=== PATIENT | female | born 1945 | race Caucasian/White ===

== ENCOUNTER 2018-11-04 16:16 | Inpatient (IN) ==
[2018-11-04] MEDS ORDERED: ZOFRAN IV PRN (17:06)
[2018-11-04] MEDS: LOVENOX SUBQ SCH (19:11)
[2018-11-04] MEDS: TYLENOL PO PRN (19:11)
[2018-11-04 19:41] LABS: BILIRUBIN URINE NEGATIVE (NEGATIVE); BLOOD URINE NEGATIVE (NEGATIVE); CLARITY CLEAR (CLEAR); COLOR YELLOW; GLUCOSE URINE NEGATIVE (NEGATIVE); KETONE URINE TRACE mg/dL (NEGATIVE); LEUKOCYTES URINE NEGATIVE (NEGATIVE); NITRITE URINE NEGATIVE (NEGATIVE); PROTEIN URINE NEGATIVE (NEGATIVE); URINE BACTERIA 1+ /HFP; URINE CAST NONE SEEN /LPF; URINE CRYSTAL NONE SEEN /HPF; URINE EPITHELIAL CELLS <10 /HPF (<10); URINE SOURCE CLEAN CATCH; URINE WBC <10 /HPF (<10); URINE YEAST NONE SEEN /HPF; UROBILINOGEN URINE NORMAL
--- NOTE | 2018-11-04 20:07 | HISTORY AND PHYSICAL ---
PRIMARY CARE PHYSICIAN: Dr. Anel Alvarado. CHIEF COMPLAINT: Of leg pain that began Mark night and progressively worsened up into her groin and pain with walking. HISTORY OF PRESENTING ILLNESS: This is a 73-year-old female who presents to [facility] ER as a direct admit after the patient was seen at the primary care physician's office with pain to her right leg that began Saturday night in the front lower part of her right leg and then went up into her thigh and then radiated up into her groin worse with walking so she was sent to [facility] for an outpatient venous ultrasound, was found to have a peroneal and greater saphenous DVT so she is being admitted for further evaluation and treatment. PAST MEDICAL HISTORY: Hypertension, hyperlipidemia, GERD, diabetes type 2. PAST SURGICAL HISTORY: Of cholecystectomy and . FAMILY HISTORY: Reviewed and noncontributory. SOCIAL HISTORY: She currently lives alone. Denies any tobacco, alcohol or illicit drug use. ALLERGIES: To cephalexin. HOME MEDICATIONS: We need to obtain a current list, reconcile, review and restart as appropriate. We will place an order for nursing to update and confirm home medications. LABORATORY DATA: We are going to obtain a CBC, CMP, TSH, will do a hypercoagulable workup as well. REVIEW OF SYSTEMS: She denied any fever, chills, blurred vision, dizziness, chest pain, coughing, or shortness of breath, she denied any abdominal pain, constipation, diarrhea, burning or hurting with urination. She was positive for pain to her right leg that was worse with ambulation that radiated up into her groin. PHYSICAL EXAMINATION: On arrival she had a temperature of 97.8 degrees, pulse 81, respirations 18, blood pressure 141/63, saturating 98% on room air. GENERAL: This is a 73-year-old female who is sitting up in the bed and answers questions appropriately. HEENT: Normocephalic, atraumatic. Normal ENT inspection. Oropharynx and nares are clear. Pupils are equal, round, reactive to light and accommodation. Extraocular movements are intact. NECK: Normal inspection, normal range of motion. LUNGS: Clear to auscultation bilaterally with equal lung expansion and chest wall movement. HEART: With regular rate and rhythm. No murmurs, rubs, or gallops. ABDOMEN: Soft, nontender, nondistended. Bowel sounds are present x4 quadrants. EXTREMITIES: She moves all extremities well. NEUROLOGICAL: The cranial nerves 2-12 appear grossly intact. ASSESSMENT: 1. Right lower extremity deep vein thrombosis in the peroneal and greater saphenous veins. 2. Diabetes type 2. 3. Hypertension. 4. Hyperlipidemia. PLAN: She will be admitted to the medical unit, placed on telemetry. Diabetic diet. Strict bed rest. We will update and confirm her home medications. Check a CBC, CMP now, a hypercoagulable workup, TSH. Place on Lovenox 80 mg subcu q.12, Tylenol 650 p.o. q.6 hours p.r.n., Zofran 4 mg IV q.4 hours p.r.n. and further orders after seen by attending. Dictated by LATIA Wahl for Markie Helton MD cc: MD Markie Rogel MD
[2018-11-05] MEDS: TYLENOL PO PRN ×2 (03:35→23:13)
[2018-11-05] MEDS: LOVENOX SUBQ SCH ×2 (05:11→21:27)
[2018-11-05 06:40] LABS: BASO# 0.01 X1000 (0.0-0.2); BASO% 0.2 % (0.0-0.8); EOS# 0.18 X1000 (0.0-0.7); EOS% 2.8 % (0.0-10.0); HEMOGLOBIN 14.2 g/dL (12.0-16.0); IMM GRAN# 0.01 X1000 (0.0-0.04); IMM GRAN% 0.2 % (0.0-0.5); LYMPH# 2.03 X1000 (1.2-3.4); LYMPH% 31.8 % (20.5-51.1); MCH 30.5 PG (27-31); MCHC 33.8 g/dL (33-37); MCV 90.1 FL (81-99); MONO# 0.49 X1000 (0.11-0.59); MONO% 7.7 % (1.7-9.3); MPV 11.5 FL (7.4-10.4); NEUT# 3.66 X1000 (1.4-6.5); NEUT% 57.3 % (42.2-75.2); PLT 202 X1000 (130-400); RBC 4.66 XMIL (4.2-5.4); RDW 13.5 % (11.5-14.5); WBC 6.38 X1000 (4.8-10.8)
[2018-11-05 06:47] LABS: AGAP 13; ALBUMIN 3.8 g/dL (3.5-5.0); ALKALINE PHOSPHATASE 82 U/L (32-104); BUN 12 mg/dL (8-22); CALCIUM 9.2 mg/dL (8.8-10.2); CHLORIDE 102 mmol/L (98-107); COSMO 282; CREATININE 0.6 mg/dL (0.5-0.9); ESTIMATED GFR > 60; GLUCOSE 218 mg/dL (70-104); GOT 12 U/L (10-30); GPT 12 U/L (10-36); POTASSIUM 4.1 mmol/L (3.5-5.1); SODIUM 138 mmol/L (136-145); TCO2 23 mmol/L (25-35); TOTAL PROTEIN 6.9 g/dL (6.3-8.3)
[2018-11-05] MEDS ORDERED: CATAPRES PO PRN (09:44)
[2018-11-05] MEDS ORDERED: ZANTAC PO PRN (09:44)
[2018-11-05] MEDS ORDERED: LEVEMIR SUBQ SCH (09:45)
[2018-11-05] MEDS ORDERED: XARELTO PO SCH (10:00)
[2018-11-05] MEDS: MEVACOR PO SCH (10:41)
[2018-11-05] MEDS: ALDACTONE PO SCH (10:41)
[2018-11-05] MEDS: VITAMIN D PO SCH (10:41)
--- NOTE | 2018-11-05 10:46 | PROGRESS NOTE ---
DATE: 11/05/2018 SUBJECTIVE: Patient is sitting up in bed, resting quietly. No complaints voiced at this time. OBJECTIVE: Vital signs: Temperature 97.7 degrees, pulse 57, respirations 20, blood pressure 121/63, satting 98% on room air. General: This is a 73-year-old female, sitting up in the bed and answers questions appropriately. HENT: Normocephalic, atraumatic. Normal ENT inspection. Oropharynx and nares are clear. Eyes: Pupils are equal, round, and reactive to light and accommodation. Extraocular movements are intact. Neck: Normal inspection, normal range of motion. Lungs: Clear to auscultation bilaterally with equal lung expansion and chest wall movement. Heart: Regular rate and rhythm. No murmurs, rubs, or gallops. Abdomen: Soft, nontender, nondistended. Bowel sounds are present x4 quadrants. Musculoskeletal: She has 5/5 strength x4 extremities. Keeping her bilateral lower extremities elevated at this time due to the right lower extremity DVT. Neurological: The cranial nerves 2-12 appear grossly intact. LABS: There is no new labs for today. ASSESSMENT: 1. Right lower extremity deep vein thrombosis. 2. Diabetes type 2. 3. Hypertension. 4. Hyperlipidemia. PLAN: We will discontinue the Lovenox 1 mg/kg subcutaneously q. 12 hours, and we will change her to Xarelto 15 mg p.o. b.i.d. She will take this dosage for the next 3 weeks, and then will transition to 20 mg p.o. daily. I have restarted her home medications, and her hypercoagulable workup is pending. The patient remains on strict bed rest at this time, and further orders after seen by attending. Dictated by LATIA Wahl for Markie Helton MD cc: LATIA Wahl MD
[2018-11-05] MEDS: GLUCOPHAGE PO SCH (11:43)
[2018-11-05] MEDS: LEVEMIR INSULIN *HA SUBQ SCH ×2 (11:44→21:27)
--- NOTE | 2018-11-05 12:10 | PROGRESS NOTE ---
DATE: 11/05/2018 SUBJECTIVE: The patient is doing well. No major complaints. Her pain is better. OBJECTIVE: Vital Signs: Blood pressure 121/63, heart rate of 57, respiratory rate of 20, temperature 97.7 degrees. Cardiovascular: Regular rate and rhythm. Pulmonary: Bilateral breath sounds clear to auscultation. GI: Soft, nontender, nondistended. Bowel sounds were positive. Laboratory Data: I do not have any new data today. Blood sugar is 218. PROBLEM LIST: Lakisha has seen this patient. We are going to treat her deep venous thrombosis. She cannot afford Xarelto or might likely be able to afford Xarelto. We are switching her to Lovenox and Coumadin. Unfortunately, we will have to change her dosing schedule and start that this evening. Anticipate discharge tomorrow. cc: Markie Helton MD
[2018-11-05] MEDS ORDERED: GLUCOPHAGE PO SCH (21:00)
[2018-11-06] MEDS: GLUCOPHAGE PO SCH (06:06)
[2018-11-06 07:42] VITALS: BP 123/67
[2018-11-06] MEDS: MEVACOR PO SCH (09:29)
[2018-11-06] MEDS: VITAMIN D PO SCH (09:29)
[2018-11-06] MEDS: ALDACTONE PO SCH (09:29)
[2018-11-06] MEDS: LOVENOX SUBQ SCH (09:29)
[2018-11-06] MEDS: LEVEMIR INSULIN *HA SUBQ SCH (09:29)
[2018-11-06] MEDS ORDERED: COUMADIN PO SCH (21:00)
--- NOTE | 2018-11-07 07:58 | DISCHARGE SUMMARY ---
ADMISSION DATE: 11/05/2018 DISCHARGE DATE: 11/06/2018 PRIMARY CARE PHYSICIAN: Dr. Anel Alvarado. ADMISSION DIAGNOSES: 1. Right lower extremity deep venous thrombosis. 2. Diabetes type 2. 3. Hypertension. 4. Hyperlipidemia. DISCHARGE DIAGNOSES: 1. Right lower extremity deep venous thrombosis. 2. Diabetes type 2. 3. Hypertension. 4. Hyperlipidemia. SUMMARY OF FINDINGS: This is a 73-year-old female who presented as a direct admit after the patient was seen at her primary care physician's office for pain in her right leg that began this past Saturday night to the lower part of her right leg and then in her thigh radiating up into her groin that was worse with walking. She was sent to [facility] for an outpatient venous ultrasound, and was found to have a peroneal and greater saphenous DVT. She was admitted to the [facility] for further evaluation and treatment. We started her on Lovenox 1 mg/kg subcu q.12h. We have a hypercoagulable workup that is pending. We attempted to place her on Xarelto or Eliquis, but the patient was not able to afford the medication so she is going to be continued on Lovenox 1 mg/kg subcu q.12h with a Coumadin bridge at 5 mg p.o. at bedtime. We will recheck PT and INR on this upcoming 11/09/2018. Call the patient with results on whether to continue the Lovenox at that time or not. She certainly needs to follow up with Dr. Alvarado this next week. It is felt that she can safely be discharged home. DISCHARGE MEDICATIONS: 1. Vitamin D3 1 capsule p.o. daily. 2. Clonidine 0.1 mg p.o. daily p.r.n. 3. Levemir 50 units subcu b.i.d. 4. Lovastatin 40 mg p.o. daily. 5. Metformin 1000 mg p.o. at bedtime and 500 mg as directed at 7:00 in the morning and 12:00 noon. 6. Zantac 150 mg p.o. daily p.r.n. 7. Spironolactone 50 mg p.o. daily. 8. Again, she will continue her Lovenox 80 mg subcutaneously q.12 #10 with no refills. 9. Coumadin 5 mg p.o. at bedtime #30 with 1 refill. Again, she will have her PT and INR drawn on 11/09/2018, and we will call her with the results. TIME SPENT WITH PATIENT: A 33 minute discharge. Dictated by LATIA Wahl for Markie Helton MD cc: MD Lakisha Rogel CRNP Alexis R. Penot, MD
--- NOTE | 2018-11-07 08:20 | DISCHARGE SUMMARY ---
ADMISSION DATE: 11/05/2018 DISCHARGE DATE: 11/06/2018 DISCHARGE DIAGNOSIS: Deep venous thrombosis of her right leg. I think it was her right peroneal vein and right greater saphenous vein. HISTORY: The patient is doing well. We ended up having to do Coumadin and Lovenox because of cost. We had a long discussion about monitoring her medications. Because of the upcoming weekend, we will get her to come in for PT/INR in a few days because she is not going to be able to get her PCP before 6 days so we are going to try to check that. She is on Coumadin 5 and Lovenox. We may have to adjust accordingly. TIME SPENT: 32 minute discharge. LATIA Wahl will do a complete full discharge summary. cc: MD Anel Prieto MD
--- NOTE | 2018-11-07 11:14 | DISCHARGE SUMMARY ---
ADMISSION DATE: 11/05/2018 DISCHARGE DATE: 11/06/2018 The patient is doing well on day of discharge. She is complaining of a little bit of pain and swelling in her right leg. Her vital signs are stable. Plan is to discharge today. She is stabilized. We have had to do Coumadin because of lack of affordability for NOACs. The patient will be discharged on Coumadin and Lovenox. She is to return for PT/INR on Saturday, and we will adjust her Coumadin. Then, Dr. Anel Alvarado will take over after that. TIME SPENT: This is a 35 minute discharge for a complicated associated with follow-up INR. cc: MD Anel Prieto MD MTDD
== END 2018-11-06 12:15 | disposition home or self-care (01) | DRG 301 ==
LOC: P.DIRADM 16:16 → INTOOBSV 16:16 → P.MEDSURG 16:34
PROVIDERS: ATTEND Internal Medicine
CPT/HCPCS: 80053; 81001; 81240; 81241; 82948; 83090; 84443; 85025; 85300; 85301; 85302; 85306; 85612; 85613; 85730; 86147; 93971; A9270; J1650; J1815; XXXXX